=== PATIENT | female | born 1985 | race American Indian/Alaskan Native ===

== ENCOUNTER 2020-08-02 11:30 | Day surgery (SDC) | payer MEDICAID ==
[2020-07-31 11:15] LABS: Basophils # (Auto) 0.1 K/mm3 (0.0-0.1); Basophils % (Auto) 0.6 % (0.0-1.8); Eosinophils # (Auto) 0.3 K/mm3 (0.0-0.4); Eosinophils % (Auto) 3.4 % (0.0-4.3); Hematocrit 35.9 % (30.3-42.9); Hemoglobin 12.2 gm/dl (10.1-14.3); Lymphocytes # (Auto) 3.9 K/mm3 (1.2-5.4); Lymphocytes % (Auto) 44.8 % (13.4-35.0); Mean Corpuscular HGB Conc 34 % (30-34); Mean Corpuscular Volume 92 fl (79-97); Monocytes # (Auto) 0.5 K/mm3 (0.0-0.8); Monocytes % (Auto) 5.3 % (0.0-7.3); Platelet Count 309 K/mm3 (140-440); Red Blood Count 3.92 M/mm3 (3.65-5.03)
--- NOTE | 2020-07-31 11:57 | Anesthesia Consultation ---
Anesthesia Consult and Med Hx Date of service: 08/02/20 - Airway Anesthetic Teeth Evaluation: Chipped (Cracked teeth), Crowns ROM Head & Neck: Adequate Mental/Hyoid Distance: Adequate Mallampati Class: Class II Intubation Access Assessment: Good - Pre-Operative Health Status ASA Pre-Surgery Classification: ASA2 Proposed Anesthetic Plan: General Nerve Block: TAP - Pulmonary Hx Smoking: No Hx Respiratory Symptoms: No (+2FS) - Cardiovascular System Hx Hypertension: Yes Hx Heart Murmur: Yes (As a child) - Central Nervous System Hx Psychiatric Problems: No - Gastrointestinal Hx Gastroesophageal Reflux Disease: No - Endocrine Hx Renal Disease: No Hx Liver Disease: No Hx Non-Insulin Dependent Diabetes: No Hx Thyroid Disease: No - Hematic Hx Sickle Cell Disease: No - Other Systems Hx Alcohol Use: Yes (Occas) Hx Cancer: No
--- NOTE | 2020-08-02 10:43 | History and Physical Report ---
History of Present Illness Date of examination: 08/02/20 Date of admission: August 02, 2020 Chief complaint: Symptomatic uterine fibroids and menorrhagia History of present illness: 34-year-old -0-0-3 with a history of symptomatic uterine fibroids and menorrhagia. The patient has experienced heavy vaginal bleeding and anemia. Pelvic ultrasound demonstrated findings of 2 submucosal leiomyomas with the largest being 2.7 cm. The patient has failed medical management and has elected to undergo definitive surgical management Past History Past Medical History: other (Lupus; uterine fibroids) Past Surgical History: no surgical history Social history: - Obstetrical History : 3 Para: 3 Hx # Term Pregnancies: 3 Number of Pregnancies: 0 Spontaneous Abortions: 0 Induced : 0 Number of Living Children: 3 Medications and Allergies Allergies Allergy/AdvReac Type Severity Reaction Status Date / Time No Known Allergies Allergy Unverified 07/25/20 16:02 Home Medications Medication Instructions Recorded Confirmed Last Taken Type Ergocalciferol [Vitamin D2] 1 cap PO QWEEK 07/31/20 07/31/20 Unknown History NIFEdipine [Adalat cc] 30 mg PO DAILY 07/31/20 07/31/20 Unknown History Active Meds: Active Medications Acetaminophen (Acetaminophen 500 Mg Tab) 1,000 mg PO ONCE ANNA MARIE Stop: 08/02/20 21:00 Celecoxib (Celecoxib 200 Mg Cap) 400 mg PO PREOP NR Stop: 08/02/20 21:00 Fentanyl (Fentanyl 100 Mcg/2 Ml Inj) 100 mcg IV ONCE ANNA MARIE Stop: 08/02/20 21:00 Gabapentin (Gabapentin 300 Mg Cap) 600 mg PO PREOP NR Stop: 08/02/20 21:00 Lactated Ringer's (Lactated Ringers) 1,000 mls @ 125 mls/hr IV DIRECT ANNA MARIE Cefazolin Sodium (Ancef/Sterile Water 2 Gm/20 Ml) 2 gm in 20 mls @ 80 mls/hr IV PREOP NR; Protocol Magnesium Oxide (Magnesium Oxide 400 Mg Tab) 400 mg PO ONCE ANNA MARIE Stop: 08/02/20 21:00 Midazolam HCl (Midazolam 2 Mg/2 Ml Inj) 2 mg IV PREOP NR Stop: 08/02/20 23:59 Review of Systems All systems: negative Genitourinary: vaginal bleeding - Vital Signs Vital signs: Vital Signs Temp Pulse Resp BP Pulse Ox 98.4 F 80 20 128/88 97 02/22/21 10:30 07/31/20 10:30 07/31/20 10:30 07/31/20 10:30 07/31/20 10:30 Temp Pulse Resp BP Pulse Ox 98.4 F 80 20 128/88 97 07/31/20 10:30 07/31/20 10:30 07/31/20 10:30 07/31/20 10:30 07/31/20 10:30 - Physical Exam Breasts: Positive: deferred Cardiovascular: Regular rate Lungs: Positive: Clear to auscultation Abdomen: Positive: normal appearance Results Result Diagrams: 07/31/20 10:35 All other labs normal. Assessment and Plan - Patient Problems (1) Leiomyoma Status: Acute Plan to address problem: The patient is scheduled to undergo a robotic hysterectomy and bilateral salpingectomy (2) Menorrhagia Status: Acute
[~2020-08-02 11:30] MED LIST: ACETAMINOPHEN 500 MG TAB PO SCH; CELECOXIB 200 MG CAP PO NR; GABAPENTIN 300 MG CAP PO NR; LACTATED RINGERS 1,000 ML IV SCH; MAGNESIUM OXIDE 400 MG TAB PO SCH; MIDAZOLAM 2 MG/2 ML INJ IV NR; ceFAZolin/Water 2 GM/20 ML 2 GM/20 ML SYRINGE IV NR; fentaNYL 100 MCG/2 ML INJ IV SCH
--- NOTE | 2020-08-02 12:16 | Anesthesia Day of Surgery ---
Anesthesia Day of Surgery - Day of Surgery Patient Examined: Yes Patient H&P Reviewed: Yes Patient is NPO: Yes
[2020-08-02] MEDS ORDERED: BUPIVACAINE/PF (0.25%) 2.5 MG/ML 30 ML VIAL INFILTRATI ONE (12:26)
[2020-08-02] MEDS ORDERED: dexAMETHasone 20 MG/5 ML VIAL ONE (12:49)
[2020-08-02] MEDS ORDERED: LIDOCAINE MPF (2%) 20 MG/1 ML VIAL 5 ML ONE (12:49)
[2020-08-02] MEDS ORDERED: PHENYLEPHRINE/NS 1,000 MCG/10 ML SYRINGE (OR USE) IV ONE (12:49)
[2020-08-02] MEDS ORDERED: ONDANSETRON 4 MG/2 ML INJ ONE (12:49)
[2020-08-02] MEDS ORDERED: ROCURONIUM 50 MG/5 ML INJ IV ONE (12:49)
[2020-08-02] MEDS ORDERED: SUCCINYLCHOLINE CHLORIDE 200 MG/10 ML INJ MDV ONE (12:49)
[2020-08-02] MEDS ORDERED: fentaNYL 100 MCG/2 ML INJ ONE (12:50)
[2020-08-02] MEDS ORDERED: HYDROmorphone 1 MG/1 ML INJ ONE ×2 (12:50→16:54)
[2020-08-02] MEDS ORDERED: ePHEDrine SULFATE 50 MG/1 ML INJ ONE (12:51)
[2020-08-02] MEDS ORDERED: propofoL 200 MG/20 ML VIAL IV ONE (12:51)
[2020-08-02] MEDS ORDERED: NEOMY 40 MG/POLYMYXIN B 200,000 UNITS/ML (GU) AMPULE IR ONE ×2 (13:05→15:07)
[2020-08-02] MEDS ORDERED: SODIUM CHLORIDE 0.9% IRR 1,500 ML BOTTLE IR ONE (15:08)
--- NOTE | 2020-08-02 15:31 | Operative Report ---
Operative Report Operative Report: Date of surgery: August 02, 2020 Preoperative diagnoses: Symptomatic uterine fibroids; menorrhagia Postoperative diagnoses: Same as above Procedure: Robotic hysterectomy; bilateral salpingectomy Surgeon: Malia Amanda M.D. Director Airport Operations: Isaac Adams Anesthesia: Gen. endotracheal anesthesia Estimated blood loss: 100 mL Pathology: Uterus, cervix, bilateral tubes Indication: 34-year-old -0-0-3 with a history of symptomatic uterine fibroids and menorrhagia. The patient failed medical management and elected to undergo definitive surgical management. Procedure: The patient was taken to the operating room and given general endotracheal anesthesia without complication after a time out was performed confirming the surgery and identity of the patient. She was prepped and draped in a normal sterile fashion. A bivalve speculum was placed in the patient's vagina and a single-tooth tenaculum placed on the anterior lip of the cervix. The uterus was sounded with the uterine sound. A stay suture with 0-vicryl was placed at 12 o'clock on the anterior cervix. A Avolent uterine manipulator was placed in the bivalve speculum was then removed. A warm laparotomy sponge was placed in the vagina. Attention was then turned to the patient's abdomen where a 12millimeter supra umbilical skin incision was then made. A Veress needle was placed and peritoneal entry was verified water-filled syringe. Insufflation of the peritoneal cavity was performed with CO2 gas. The 12 mm trocar was then placed under direct visualization. An additional 8 mm robotic trocar was placed on the patient's left and right lateral side just opposite of the supraumbilical trocar. An additional 5 mm right lateral trocar was then placed as the accessory port. The supraumbilical 12 mm trocar site was closed with the Roque Copeland device and 0-vicryl suture. The patient was then placed in steep Trendelenburg. The da Lucy robot was then engaged. A fenestrated forcep was placed in arm 2 and a vessel sealer was placed in arm 1. An enlarged uterus with normal tubes and ovaries bilaterally. The surgeon then transferred to the surgical console. The mesosalpinx was then isolated on the right. The vessel sealer was used to coagulate the mesosalpinx which was then transected. The tube was transected from the ovary. The tubo-ovarian ligament was then coagulated and transected. The round ligament was then coagulated and transected also. The vesicouterine peritoneum was then entered from the patient's right side. The uterine vessels were then coagulated with the vessel sealer. The vessels were then transected . Attention was then turned to the patient's left side where the tubo-ovarian ligament and mesosalpinx were again isolated coagulated and transected. The vesical peritoneum was then entered from the left and joined in the midline. Peritoneum was reflected off of the lower uterine segment. Uterine vessels were then coagulated and then transected. The blood supply to the uterus was adequately contained, a posterior colpotomy was made. The V care ring was visualized. Posterior colpotomy was created with the monopolar scissors. The incision was continued circumferentially until anterior colpotomy was made. The cervix and uterus were amputated from the vaginal cuff. The uterus was bivalved in order to facilitate delivery through the vagina. The uterus was then removed along with the tubes bilaterally through the vagina and a warm laparotomy sponge was placed and maintain the pneumoperitoneum. The vaginal cuff was then closed in a running fashion with V lock suture. Irrigation of the pelvis was performed. Hemoblast was applied to the incision. The Vuduinci robot was undocked. The trocars were removed and the insuffliation was released. The skin was then reapproximated with 4-0 Monocryl. The tissue was sent to pathology which included the cervix, bilateral tubes and uterus. The patient was then successfully extubated. She was then taken to the recovery room in stable condition. All sponge laps and needle counts were correct x2.
[2020-08-02] MEDS ORDERED: GLYCOPYRROLATE 0.4 MG/2 ML INJ ONE (15:40)
[2020-08-02] MEDS ORDERED: NEOSTIGMINE 10MG/10 ML INJ MDV ONE (15:40)
[2020-08-02] MEDS ORDERED: HYDROmorphone 1 MG/1 ML INJ IV PRN ×2 (16:54)
[2020-08-02] MEDS ORDERED: oxyCODONE /ACETAMINOPHEN 5-325MG TAB ONE (17:50)
[2020-08-02] MEDS ORDERED: oxyCODONE /ACETAMINOPHEN 5-325MG TAB PO ONE (17:54)
[2020-08-02 18:46] VITALS: BP 140/90
--- NOTE | 2020-08-02 19:24 | Post Anesthesia Evaluation ---
- Post Anesthesia Evaluation Patient Participated: Yes Airway Patent: Yes Stable Respiratory Function: Yes Nausea/Vomiting: No Temp > 96.8F: Yes Pain Manageable: Yes Adequeate Hydration: Yes Anesthesia Complications: No Block Receding Appropriately: Yes Patient on Ventilator: No
== END 2020-08-02 11:31 | disposition home or self-care (01) ==
LOC: OR 11:30
PROVIDERS: ATTEND Obstetrics & Gynecology
DX: N92.0 Excessive and frequent menstruation with regular cycle (principal); D25.9 Leiomyoma of uterus, unspecified; I10 Essential (primary) hypertension; Z72.89 Other problems related to lifestyle; Z79.899 Other long term (current) drug therapy; Z20.828 Contact with and (suspected) exposure to other viral communicable diseases
CPT/HCPCS: 36415; 58552; 84703; 85025; 86850; 86900; 86901; 88307; C1765; J0330; J0690; J1100; J1170; J2250; J2370; J2405; J2704; J2710; J3010; J7120; S2900; U0003; 64450